=== PATIENT | female | born 1960 | race Caucasian/White ===

== ENCOUNTER 2017-02-27 18:15 | Emergency (ER) | payer MEDICAID, OTHER ==
[~2017-02-27] VITALS: Wt 65.0 kg
[2017-02-27] MEDS ORDERED: KETOROLAC 30 MG INJ IM STA (20:47)
[2017-02-27] MEDS ORDERED: HYDROCODONE/APAP (5/325) TAB PO ONE (21:00)
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
[2017-02-28] MEDS ORDERED: IBUP-1542 PO (00:02)
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
== END 2017-02-28 01:08 | disposition home or self-care (01) ==
LOC: FTE 18:15
DX: S29.9XXA Unspecified injury of thorax, initial encounter (principal); V89.2XXA Person injured in unspecified motor-vehicle accident, traffic, initial encounter
CPT/HCPCS: 71010; 71100; 72040; 96372; J1885; Z7502; Z7610